=== PATIENT | female | born 1960 | race Caucasian/White ===

== ENCOUNTER 2018-12-09 05:55 | Inpatient (IN) | payer OTHER ==
[2018-12-09] MEDS: HEMOSTATIC MATRIX SYG ZFS
[2018-12-09] MEDS ORDERED: DESFLURANE 15 MIN (07:00)
[2018-12-09] MEDS ORDERED: CEFAZOLIN 1 GM INJ (07:00)
[2018-12-09] MEDS ORDERED: BUPIVACAINE 0.25% (MPF) 30 ML INJ (07:07)
[2018-12-09] MEDS ORDERED: THROMBIN (BOVINE) 5,000 UNIT VIAL TP (07:08)
[2018-12-09] MEDS ORDERED: LABETALOL HCL 20MG INJ IV ×2 (07:30→12:00)
[2018-12-09] MEDS ORDERED: ONDANSETRON 4 MG INJ IV ×2 (07:30→12:00)
[2018-12-09] MEDS ORDERED: hydrALAzine 20 MG INJ IV ×2 (07:30→12:00)
[2018-12-09] MEDS ORDERED: DIPHENHYDRAMINE 50 MG INJ IV (07:30)
[2018-12-09] MEDS ORDERED: MEPERIDINE 25 MG INJ IV ×2 (07:30→12:00)
[2018-12-09] MEDS ORDERED: HYDROmorphONE 1 MG/5 ML IV SYRINGE IV ×6 (07:30→12:00)
[2018-12-09] MEDS ORDERED: PROPOFOL 20 ML (07:44)
[2018-12-09] MEDS ORDERED: FENTAnyl 50 MCG/ML VIAL (07:45)
[2018-12-09] MEDS ORDERED: morphine SULFATE/PF (10 MG/10 ML) INJ (07:45)
[2018-12-09] MEDS ORDERED: ONDANSETRON 4 MG INJ ×2 (07:45→11:27)
[2018-12-09] MEDS ORDERED: MIDAZOLAM 1 MG/ML 2 ML INJ (07:45)
[2018-12-09] MEDS ORDERED: METOCLOPRAMIDE 10 MG INJ ×2 (07:45→11:50)
[2018-12-09] MEDS ORDERED: DEXAMETHASONE 4 MG/ML 5 ML INJ (08:17)
[2018-12-09] MEDS ORDERED: EPHEDrine 25 MG/5 ML SYG (08:22)
[2018-12-09] MEDS: BUPIVACAINE 0.5%/EPI (SDV) 30 ML INJ (08:42)
[2018-12-09] MEDS: THROMBIN 5000 UNIT VIAL TOP ×2 (08:47)
[2018-12-09] MEDS: POLYMYXIN/BACITRACIN 1L IRRIG (08:47)
[2018-12-09] MEDS ORDERED: BUPIVACAINE 0.5%/EPI (SDV) 30 ML INJ (09:22)
[2018-12-09] MEDS ORDERED: ZOLPIDEM 5 MG TAB PO (11:30)
[2018-12-09] MEDS ORDERED: HYDROCODONE/APAP (5/325) TAB PO (11:30)
[2018-12-09] MEDS: ONDANSETRON INJ 6 MG in DEXTROSE 5% 50 ML IVPB (11:47)
[2018-12-09] MEDS: METOCLOPRAMIDE 10 MG TAB PO ×3 (12:00→23:47)
[2018-12-09] MEDS: KETOROLAC 30 MG INJ IV ×3 (12:06→23:48)
[2018-12-09] MEDS: DIPHENHYDRAMINE 50 MG INJ IV (12:20)
[2018-12-09] MEDS: LACTATED RINGER'S 1,000 ML IV ×2 (12:23→21:38)
[2018-12-09] MEDS: METOCLOPRAMIDE 10 MG INJ IV (12:39)
[2018-12-09] MEDS: CEFAZOLIN 1 GM/50 ML (PMX) 50 ML IVPB ×2 (15:43→21:38)
[2018-12-09] MEDS: DIPHENHYDRAMINE 50 MG CAP PO (23:47)
[2018-12-10] MEDS: LACTATED RINGER'S 1,000 ML IV ×2 (03:12→11:58)
[2018-12-10 05:12] LABS: ADD MAN DIFF? NO; BASOPHILS % 0.2 % (0.0-2.0); HEMATOCRIT 30.9 % (37.0-47.0); HEMOGLOBIN 10.1 g/dl (12.0-16.0); LYMPHOCYTES # 1.6 10^3/ul (0.8-2.9); MEAN CORPUSCULAR HEMOGLOBIN 31.3 pg (29.0-33.0); MEAN CORPUSCULAR HGB CONC 32.7 g/dl (32.0-37.0); MEAN CORPUSCULAR VOLUME 95.7 fl (82.0-101.0); MEAN PLATELET VOLUME 9.6 fl (7.4-10.4); MONOCYTE # 1.1 10^3/ul (0.3-0.9); MONOCYTES % 9.3 % (0.0-11.0); NEUTROPHIL # 8.7 10^3/ul (1.6-7.5); NEUTROPHILS % 76.1 % (39.0-77.0); PLATELET COUNT 210 10^3/UL (140-415); RED BLOOD COUNT 3.23 10^6/ul (4.20-5.40); RED CELL DISTRIBUTION WIDTH 12.5 % (11.5-14.5)
[2018-12-10 05:12] LABS: WHITE BLOOD COUNT 11.4 10^3/ul (4.8-10.8)
[2018-12-10] MEDS: CEFAZOLIN 1 GM/50 ML (PMX) 50 ML IVPB (05:44)
[2018-12-10] MEDS: METOCLOPRAMIDE 10 MG TAB PO ×3 (05:44→18:30)
[2018-12-10] MEDS: KETOROLAC 30 MG INJ IV ×3 (05:45→18:30)
[2018-12-10 05:50] LABS: ANION GAP 6 (5-13); BLOOD UREA NITROGEN 15 mg/dl (7-20); CARBON DIOXIDE 28 mmol/L (21-31); CHLORIDE 104 mmol/L (97-110); CREATININE 0.54 mg/dl (0.44-1.00); POTASSIUM 4.5 mmol/L (3.5-5.1); SODIUM 138 mmol/L (135-144)
[2018-12-10] MEDS: SOD CHLORIDE 0.9% 250 ML IV (09:30)
[2018-12-10] MEDS: HYDROCODONE/APAP (5/325) TAB PO (21:59)
[2018-12-11] MEDS: METOCLOPRAMIDE 10 MG TAB PO ×3 (00:22→14:38)
[2018-12-11] MEDS: KETOROLAC 30 MG INJ IV ×3 (00:24→14:38)
== END 2018-12-11 15:15 | disposition home or self-care (01) | DRG 743 ==
LOC: REC 05:55 → MS1 12:52
PROC: 0UT97ZZ Resection of Uterus, Via Natural or Artificial Opening (ICD-10-PCS; principal; 2018-12-09 07:30)
PROC: 0UT77ZZ Resection of Bilateral Fallopian Tubes, Via Natural or Artificial Opening (ICD-10-PCS; 2018-12-09 07:30)
PROC: 0JUC07Z Supplement of Pelvic Region Subcutaneous Tissue and Fascia with Autologous Tissue Substitute, Open Approach (ICD-10-PCS; 2018-12-09 07:30)
PROC: 0JQC0ZZ Repair Pelvic Region Subcutaneous Tissue and Fascia, Open Approach (ICD-10-PCS; 2018-12-09 07:30)
PROC: 0TSD0ZZ Reposition Urethra, Open Approach (ICD-10-PCS; 2018-12-09 07:30)
DX: N81.3 Complete uterovaginal prolapse (principal); N39.46 Mixed incontinence; K59.00 Constipation, unspecified; R03.0 Elevated blood-pressure reading, without diagnosis of hypertension; Z80.0 Family history of malignant neoplasm of digestive organs
CPT/HCPCS: 71045; 80051; 82565; 84520; 85025; 86850; 86900; 86901; 87086; 88305